=== PATIENT | female | born 1985 | race Hispanic/Latino ===

== ENCOUNTER 2016-12-21 01:02 | Emergency (ER) | payer OTHER ==
[~2016-12-21 01:02] MED LIST: ANTIBIOTIC O500 U/GM TOP; MOTRIN 600 MG600 MG PO; PERCOCET 325 MG1 TA2 PO
--- NOTE | 2016-12-21 01:26 | ED DYSPNEA/ASTHMA COMPLAINT ---
History of Present Illness General Chief Complaint: Upper Respiratory Sx/Fever Stated Complaint: " CANT STOP COUGHING"PER , FEVER Source: patient, family Exam Limitations: no limitations Vital Signs & Intake/Output Vital Signs & Intake/Output Vital Signs Date Time Temp Pulse Resp B/P Pulse O2 O2 Flow FiO2 Ox Delivery Rate 12/21 0120 Room Air 12/21 0110 97.9 114 20 119/75 98 Room Air Allergies Coded Allergies: No Known Allergies (12/21/16) Reconcile Medications Bacitracin 500 U/GM OIN 1 NICHOLE TOP BID burn apply to affected area(s) Ibuprofen (Motrin 600 MG Tab) 600 MG TAB 1 TAB PO Q6P PRN PAIN OXYCODONE HCL/ACETAMINOPHEN (Percocet 5-325 MG Tablet) 325 MG/5 MG TAB 1-2 TAB PO Q4-6 PRN PRN severe pain Triage Note: TO ED FOR PERSISTENT COUGH. TOOK ROBITUSSIN AND ADVIL FOR TACTILE FEVER AT 1800 YESTERDAY. COUGH STARTED YESTERDAY. Triage Nurses Notes Reviewed? yes : No Patient currently breastfeeds: No HPI: Patient has had a worsening nonproductive cough over the past 2 days. Subjective fevers and chills. No orthopnea or dyspnea on exertion. Patient states that she goes in and fit and feels that she can't catch her breath. There is no nausea or vomiting. There is no anorexia. Patient took Robitussin without relief. She became concerned because when she's had symptoms like this in the past she was diagnosed with pneumonia. Past History Travel History Traveled to [place] past 21 day No Medical History Any Pertinent Medical History? see below for history Neurological: NONE EENT: NONE Cardiovascular: NONE Respiratory: pneumonia Gastrointestinal: NONE Hepatic: NONE Renal: NONE Musculoskeletal: NONE Psychiatric: NONE Endocrine: NONE Tetanus Vaccine: 10/18/15 Surgical History Surgical History: non-contributory Psychosocial History What is your primary language Khmer Tobacco Use: Never used ETOH Use: denies use Illicit Drug Use: denies illicit drug use Family History Hx Contributory? No Review of Systems Review of Systems Constitutional: Reports: see HPI, chills, fever. EENTM: Reports: no symptoms. Respiratory: Reports: see HPI, cough. Cardiovascular: Reports: no symptoms. GI: Reports: no symptoms. Genitourinary: Reports: no symptoms. Musculoskeletal: Reports: no symptoms. Skin: Reports: no symptoms. Neurological/Psychological: Reports: no symptoms. Hematologic/Endocrine: Reports: no symptoms. Immunologic/Allergic: Reports: no symptoms. All Other Systems: Reviewed and Negative Physical Exam Physical Exam General Appearance: well developed/nourished, alert, awake, anxious, moderate distress Head: atraumatic, normal appearance Eyes: Bilateral: PERRL, EOMI. Ears, Nose, Throat: normal pharynx, normal ENT inspection, hearing grossly normal Neck: normal inspection, supple, full range of motion Respiratory: normal breath sounds, chest non-tender, no respiratory distress, lungs clear Cardiovascular: regular rate/rhythm, normal peripheral pulses Gastrointestinal: normal bowel sounds, soft, non-tender Extremities: normal inspection, normal capillary refill, normal range of motion, no edema Neurologic/Psych: no motor/sensory deficits, awake, alert, oriented x 3, normal gait, normal mood/affect Skin: intact, normal color, warm/dry Lymphatic: no anterior cervical jaclyn Core Measures ACS in differential dx? No Severe Sepsis Present: No Septic Shock Present: No Progress Differential Diagnosis: asthma, bronchitis, pulmonary embolism, pneumonia Plan of Care: Orders Procedure Date/time Status XRY-CHEST XRAY, PA AND LATERAL 12/21 124 Active Diagnostic Imaging: Viewed by Me: Radiology Read. Discussed w/RAD: Radiology Read. CXR Impression: PATIENT: SMILEY RAM PRESENT AGE: 31 PATIENT ACCOUNT NO: [id number] : 86 LOCATION: [facility] ORDERING PHYSICIAN: SLADE DONALD MD SERVICE DATE: 12/21/16 EXAM TYPE: RAD - XRY-CHEST XRAY, PA AND LATERAL EXAMINATION: XR CHEST CLINICAL INFORMATION: Pneumonia. Cough and fever. COMPARISON: No relevant prior imaging available. TECHNIQUE: 2 views of the chest were obtained. FINDINGS: Lungs are well- expanded. There is no focal consolidative disease, pleural effusion, or pneumothorax. The cardiac silhouette and upper mediastinal contours are normal. No acute osseous finding. IMPRESSION: Normal chest radiograph. No consolidative disease or effusion. DICTATED BY: JUAN CARLOS CLARKE MD DATE/TIME DICTATED:12/21 TOOL ENGINE LATHE SET UP OPERATOR:YEMI DATE/TIME TRANSCRIBED:12/21/16231 CONFIDENTIAL, DO NOT COPY WITHOUT APPROPRIATE AUTHORIZATION. <Electronically signed in Other Vendor System> SIGNED BY: JUAN CARLOS CLARKE MD 12/21/16 0237 Initial ED EKG: none Departure Departure Disposition: HOME OR SELF CARE Condition: Stable Clinical Impression Primary Impression: Bronchitis Referrals: PATIENT HAS NO PRIMARY CARE DR (PCP/Family) Additional Instructions: DRINK PLENTY OF FLUIDS RETURN FOR ANY CONCERNS Departure Forms: Customer Survey General Discharge Information Prescriptions: Current Visit Scripts Azithromycin (Zithromax) 1 DP PO AD #6 TAB 2 the first day followed by 1 for days 2-5 Codeine Phosphate/Guaifenesi (Guaifenesin-Codeine Syrup) 10 ML PO Q6P PRN COUGH #240 ML Critical Care Note Critical Care Note Critical Care Time: non-applicable
--- NOTE | 2016-12-21 02:37 | RADIOLOGY REPORT ---
EXAMINATION: XR CHEST CLINICAL INFORMATION: Pneumonia. Cough and fever. COMPARISON: No relevant prior imaging available. TECHNIQUE: 2 views of the chest were obtained. FINDINGS: Lungs are well-expanded. There is no focal consolidative disease, pleural effusion, or pneumothorax. The cardiac silhouette and upper mediastinal contours are normal. No acute osseous finding. IMPRESSION: Normal chest radiograph. No consolidative disease or effusion.
[2016-12-21] MEDS ORDERED: ZITHROMAX250 M2 PO (02:39)
[2016-12-21] MEDS ORDERED: GUAIFENESIN-CODE5 M1 PO (02:39)
[2016-12-21 02:44] VITALS: BP 120/72
== END 2016-12-21 02:45 ==
LOC: ERH 01:02
DX: J40 Bronchitis, not specified as acute or chronic (principal)